=== PATIENT | female | born 1980 | race Caucasian/White ===

== ENCOUNTER 2016-09-07 05:03 | Inpatient (IN) | payer BC ==
[2016-09-02 13:29] VITALS: BMI 32.4
[2016-09-07] MEDS ORDERED: ROPIVACAINE HCL 0.5% 30ML VIAL ONE (07:40)
[2016-09-07] MEDS ORDERED: MIDAZOLAM HCL 2 MG/2 ML SINGLE DOSE VIAL ONE ×2 (07:42)
--- NOTE | 2016-09-07 07:49 | HP ---
Past Medical History - Primary Care Physician PCP:: Preet Ray - Admission Chief Complaint: PELVIC PAIN, ENDOMETRIOSIS, PELVIC ADHESIONS History of Present Illness: 36 YO F GI PI WITH 1 PREVIOUS C/S HX OS SEVER ENDOMETRIOSIS, S/P LAPAROSCOPY AND RT SALPINGECTOMY, C/O OF CHRONIC PELVIC PAIN WORSEN BY HER MENSES , SEVERE DYSMENORRIHIA, UURE INCLUDING BUTCEDNABLE TO GO TO WORK,AND INTERFER WITH HER DAILY WORK REQUESTING TO HAVE HYSTERECTOMY AND LSO,RISK OF PROCEDURE HAS BEEN DISCUSSED WITH PATIENT AND HER , AWARE RISK OF INFECTION, BLEEDING, INJURY TO SURROUNDING TISSUE, BOWEL, BLADDER, VESSELES, URETER ,POST OP COMPLICATIONS , DVT, ANESTHESIA RISK AND RISK OF ETHANOL 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 History Source: Patient - Past Medical History ...: 1 - Past Surgical History Past Surgical History: Yes: (LAPAROSCOPY , LYSIS OF PELVIC ADHESIONS) Hx Myomectomy: No Hx Transabdominal Cerclage: No - Smoking History Smoking history: Never smoked Have you smoked in the past 12 months: No Aproximately how many cigarettes per day: 0 - Alcohol/Substance Use Hx Alcohol Use: No - Social History Usual Living Arrangement: Yes: With Spouse History of Recent Travel: No Home Medications - Allergies Allergies/Adverse Reactions: Allergies Allergy/AdvReac Type Severity Reaction Status Date / Time cephalexin monohydrate Allergy Intermediate "RASH" Verified 09/02/16 13:29 [From Keflex] - Home Medications Home Medications: Ambulatory Orders Omeprazole 20 mg PO DAILY 09/02/16 Review of Systems - Review of Systems Constitutional: reports: No Symptoms Eyes: reports: No Symptoms HENT: reports: No Symptoms Neck: reports: No Symptoms Cardiovascular: reports: No Symptoms Respiratory: reports: No Symptoms Gastrointestinal: reports: Abdominal Pain, Indigestion Genitourinary: reports: Frequency, Vaginal Bleeding Breasts: reports: No Symptoms Reported Musculoskeletal: reports: No Symptoms Neurological: reports: No Symptoms Endocrine: reports: No Symptoms Hematology/Lymphatic: reports: No Symptoms Psychiatric: reports: No Symptoms 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 Vital Signs: Vital Signs Temperature 97.5 F L 09/07/16 07:30 Pulse Rate 88 09/07/16 07:30 Respiratory Rate 18 09/07/16 07:30 Blood Pressure 145/78 09/07/16 07:30 O2 Sat by Pulse Oximetry (%) 100 09/07/16 07:28 Constitutional: Yes: Well Nourished, No Distress, Calm Eyes: Yes: WNL, Conjunctiva Clear, EOM Intact HENT: Yes: WNL, Atraumatic, Normocephalic Neck: Yes: WNL, Supple, Trachea Midline Cardiovascular: Yes: WNL, Regular Rate and Rhythm Respiratory: Yes: WNL, Regular, CTA Bilaterally Gastrointestinal: Yes: WNL ...Rectal Exam: Yes: WNL Renal/: Yes: WNL Pelvis: Yes: WNL External Genitalia: Yes: Normal Internal Exam Deferred: No Vaginal Exam: Yes: Normal Cervix: Yes: Normal Uterus: Yes: Normal, Tender Adnexa: Tender: Left, Right, Not Palpable: Left, Right Breast(s): Yes: WNL Musculoskeletal: Yes: WNL Extremities: Yes: WNL Edema: No Integumentary: Yes: WNL Neurological: Yes: WNL, Alert, Oriented ...Motor Strength: WNL Psychiatric: Yes: WNL, Alert, Oriented Problem List - Problem (1) Pelvic pain Code(s): R10.2 - PELVIC AND PERINEAL PAIN (2) Endometriosis determined by laparoscopy Code(s): N80.9 - ENDOMETRIOSIS, UNSPECIFIED Assessment/Plan ADMIT FOR LAPAROTOMY, SUPRACERVICAL HYSTERECTOMY, RSO, RBA DISCUSSED
[2016-09-07] MEDS ORDERED: DEXAMETHASONE SOD PHOSPHATE 4 MG/1 ML VIAL ONE ×2 (09:12→10:40)
[2016-09-07] MEDS ORDERED: PROPOFOL 20 ML ONE (09:13)
[2016-09-07] MEDS ORDERED: ROCURONIUM BROMIDE 50 MG/5 ML VIAL ONE ×2 (09:14→10:05)
[2016-09-07] MEDS ORDERED: CLINDAMYCIN PHOSPHATE 600 MG/4 ML VIAL ONE (09:24)
[2016-09-07] MEDS ORDERED: LEVOFLOXACIN 500 MG IVPB 100 ML IVPB ONE (09:24)
[2016-09-07] MEDS ORDERED: CLINDAMYCIN PHOSPHATE 300 MG/2 ML VIAL IVPB ONE (09:24)
[2016-09-07] MEDS ORDERED: LEVOFLOXACIN 500 MG PREMIX BAG IVPB ONE (09:27)
[2016-09-07] MEDS ORDERED: ePHEDrine SULFATE 50 MG/1 ML AMPULE ONE (09:59)
[2016-09-07] MEDS ORDERED: GLYCOPYRROLATE 0.2 MG/1 ML VIAL ONE (10:22)
[2016-09-07] MEDS ORDERED: NEOSTIGMINE METHYLSULFATE 0.5 MG/ML - 10 ML MDV ONE (10:22)
[2016-09-07] MEDS ORDERED: oxyCODONE HCL 5 MG TABLET PO PRN (11:33)
[2016-09-07] MEDS ORDERED: IBUPROFEN 800 MG/8 ML IJ IVPB PRN (11:33)
[2016-09-07] MEDS ORDERED: ONDANSETRON 4 MG/2 ML VIAL IVPUSH PRN ×2 (11:39→11:40)
[2016-09-07] MEDS ORDERED: PROMETHAZINE HCL 25 MG/1 ML VIAL IVPUSH PRN (11:39)
[2016-09-07] MEDS ORDERED: DEXAMETHASONE SOD PHOSPHATE 4 MG/1 ML VIAL IVPUSH ONE (11:40)
[2016-09-07] MEDS ORDERED: PROMETHAZINE HCL 25 MG/1 ML VIAL IVPB PRN (11:40)
[2016-09-07] MEDS ORDERED: HYDROmorphone HCL CARPU-JECT 2 MG/1 ML DISP.SYRIN ONE (11:42)
[2016-09-07] MEDS ORDERED: ELECTROLYTE-148 SOLN 1,000 ML IV SCH (11:45)
[2016-09-07] MEDS: ONDANSETRON 4 MG/2 ML VIAL IVPB PRN (11:45)
[2016-09-07] MEDS ORDERED: HYDROmorphone *PCA* 10MG/50ML DISP.SYRIN PCA SCH (11:45)
[2016-09-07] MEDS: HYDROmorphone HCL CARPU-JECT 1 MG/1 ML DISP.SYRIN IVPUSH PRN ×2 (11:50→12:13)
[2016-09-07] MEDS: KETOROLAC TROMETHAMINE 30 MG/1 ML VIAL IVPB PRN (16:43)
[2016-09-07] MEDS: CLINDAMYCIN 600MG PREMIX IVPB 50 ML IVPB SCH ×2 (17:38→21:39)
[2016-09-07] MEDS: PANTOPRAZOLE 20 MG TABLET (FP) PO SCH (20:04)
[2016-09-07] MEDS ORDERED: PANTOPRAZOLE 20 MG TABLET (FP) PO ONE (21:15)
[2016-09-08] MEDS: CLINDAMYCIN 600MG PREMIX IVPB 50 ML IVPB SCH ×2 (02:32→08:44)
--- NOTE | 2016-09-08 06:52 | OP ---
DATE OF OPERATION: 09/07/2016 PREOPERATIVE DIAGNOSIS: Pelvic pain, endometriosis, right ovarian endometrioma, and pelvic adhesion. POSTOPERATIVE DIAGNOSIS: Pelvic pain, endometriosis, right ovarian endometrioma, and pelvic adhesion. Severe endometriosis, dense pelvic adhesion, and unicornuate uterus. PROCEDURE: Exploratory laparotomy, lysis of all pelvic adhesions, abdominal hysterectomy with left salpingo-oophorecetomy. SURGEON: Preet Ray MD COLLISION MECHANIC: Jose Betancur MD ANESTHESIA: General. ANESTHESIOLOGIST: Marin Kilpatrick MD ESTIMATED BLOOD LOSS: Approximately 300 mL. OPERATING NOTE: The patient was taken to the operating room, and under adequate general anesthesia, abdomen and peritoneum were prepped and draped. A Rodarte catheter was inserted, and in the supine position, a Pfannenstiel lower abdominal skin incision was made over the previous incision. Abdominal wall was cut layer by layer until peritoneum was reached. At this time, peritoneum was grasped with 2 Mona clamps. Peritoneum was adherent to the omentum, and then omentum was also adherent to the fundal portion of the uterus. These adhesions were lysed meticulously with Metzenbaum scissors until abdomen was entered. Bowels were packed away. There was endometriosis. Endometriotic lesion, bluish, was seen all over the rectum and the colon. There was also endometriosis at the anterior bladder flap. The colon was adherent to the posterior cul-se-sac and also adherent to the right ovary, and then, also left ovary was adherent to the pelvic side wall. It was very difficult to visualize the anatomy. At this time, the colon was grasped with the Rippey clamp, and adhesions were lysed with Metzenbaum scissors, and colon was dissected from both ovaries. There was some oozing from the surface of the colon secondary to the lysis of adhesions, which was stopped with applying pressure. It took about 45 minutes to lyse these colon adhesions from both ovaries. The right ovary has an endometrioma approximately 4 cm in size, and at this time, uterus was unicornuate and then was grasped with a Honey clamp, and a bladder flap was developed. Bladder also had some adhesion to the anterior uterine wall over the previous scar. These adhesions were lysed and bladder was pushed down, and then the left infundibulopelvic ligament was identified, grasped with a bipolar LigaSure cautery, cauterized and cut, and no bleeding was seen at this site. Then, the round ligament was identified bilaterally, clamped with a LigaSure bipolar cautery, cauterized and cut, and the uterus was freed. Then, on the right side, a clamp was applied at the cornual region of the uterus, and the right ovarian ligament was grasped with a Honey clamp and cut, and the clamp replaced with 0 Vicryl suture. At this time, uterine artery was skeletonized and was identified bilaterally, clamped with Honey clamps, cut, and the clamp replaced with 0 Vicryl suture bilaterally. Paracervical area was clamped with Honey clamps, cut, and the clamp replaced with several sutures of 0 Vicryl until the cervicovaginal junction was reached. At this time, the cervix was cut circumferentially around, and then was entered, and the specimen was removed. Then, the vaginal cuff was sutured with interrupted suture of 0 Vicryl, and hemostasis was established. At this time, both ligaments were checked, normal bowels were checked and reinspected. No signs of injuries. Pelvic cavity was several times irrigated. There were some omental adhesion to the peritoneum and anterior abdominal wall, which was lysed and then cauterized with the bipolar LigaSure cautery, and these adhesions were released. Then, pelvic cavity was several times irrigated. Peritoneum was closed with 0 Vicryl continuous suture. Muscles were brought together with interrupted suture of 0 Vicryl. Fascia was closed with 0 Vicryl continuous suture, subcutaneous fat with interrupted suture of 0 Vicryl, and the skin was closed with 3-0 Vicryl subcuticular continuous suture. Patient tolerated the procedure well, left the OR in good condition. Mike [id number]
[2016-09-08] MEDS: KETOROLAC TROMETHAMINE 30 MG/1 ML VIAL IVPB PRN (09:31)
[2016-09-08] MEDS ORDERED: LEVOFLOXACIN 500 MG IVPB 100 ML IVPB SCH (10:00)
[2016-09-08] MEDS: ENOXAPARIN NA (PORCINE) 40 MG/0.4 ML DISP.SYRIN SQ SCH (10:14)
[2016-09-08] MEDS: PANTOPRAZOLE 20 MG TABLET (FP) PO SCH (10:14)
--- NOTE | 2016-09-08 10:30 | PN ---
Progress Note (short form) - Note Progress Note: pod 1 has low abdominal discomfort abdomen soft, no distension, no cva. BS present incision drry, clean no calf tenderness impression doing well, oob, ambulate, advance diet, pain management
[2016-09-08 11:24] LABS: BASOPHIL 0.6 % (0-2.0); EOSINOPHIL 0.1 % (0-4.5); MCH 26.7 pg (25.7-33.7); MCHC 32.8 g/dl (32.0-36.0); MEAN CELL VOLUME 81.6 fl (80-96); MEAN PLT VOLUME 8.7 fl (7.5-11.1); PLATELET COUNT 167 K/MM3 (134-434); RDW 16.3 % (11.6-15.6)
[2016-09-08 12:01] LABS: CALCIUM 7.5 mg/dL (8.5-10.1); CREATININE 0.6 mg/dL (0.55-1.02)
[2016-09-08] MEDS ORDERED: PCA PUMP KEY 1 EACH EACH ONE (12:48)
--- NOTE | 2016-09-08 13:28 | PATH ---
Surgical Pathology Report Patient Name: JU GANDHI [facility]. Rec. #: [id number] /Age/Gender: 1980 (Age: 36) / F Account: [id number] Location: [facility] OBS/AGILE QA TESTER Taken: 09/07/2016 Received: 09/07/2016 Reported: 09/08/2016 Physicians: Preet Ray M.D. Specimen(s) Received A: UTERUS,CERVIX,LEFT OVARY & FALLOPIAN TUBE B: OMENTUM Clinical History Pelvic pain, endometriosis Final Diagnosis A. UTERUS, CERVIX, LEFT OVARY AND TUBE, TOTAL ABDOMINAL HYSTERECTOMY, LEFT SALPINGO-OOPHORECTOMY: CERVIX: CHRONIC CERVICITIS. ENDOMETRIUM: PREDOMINANTLY SECRETORY. MYOMETRIUM: EXTENSIVE ADENOMYOSIS. UTERINE SEROSA: WITHOUT SIGNIFICANT PATHOLOGIC CHANGES. LEFT FALLOPIAN TUBE: PARATUBAL CYST, EXTENSIVE TUBO-OVARIAN ADHESIONS. LEFT OVARY: BENIGN HEMORRHAGIC CYST, MOST CONSISTENT WITH ENDOMETRIOTIC CYST/ENDOMETRIOMA. EXTENSIVE TUBO-OVARIAN ADHESIONS. B. OMENTUM, EXCISION: BENIGN FATTY TISSUE WITH MARKED VASCULAR CONGESTION. Electronically Signed Meliton Leone M.D. Gross Description A. Received in formalin, labeled "uterus, cervix, left ovary and tube" is a 101 g uterus with an attached cervix and an attached left fallopian tube and left ovary. The specimen measures 10 cm from superior to inferior, 5.3 cm from left to right and 5.0 cm from anterior to posterior. The serosa is garcia-pink with focal adhesions. The attached cervix measures 4 cm in length and averages 2.2 cm in diameter. There is no definite ectocervix identified. The endocervix is unremarkable. The endometrial cavity measures 4 cm in length and averages 1.5 cm from cornu to cornu. The endometrium is garcia-red and measures up to 0.3 cm in thickness. The myometrium is garcia-pink with focal hemorrhagic cysts containing brown blood. The myometrium measures up to 2.4 cm in thickness. The left fimbriated fallopian tube measures 2.4 cm in length. The outer surface is mora purple with tubal ovarian adhesions. Sectioning reveals an unremarkable lumen. The left ovary measures 3.5 x 2.5 x 2.0 cm. The outer surface is garcia-brown with focal adhesions. Sectioning reveals a cystic lumen containing brown blood. No definite normal ovarian parenchyma is identified. Engagement Director sections are submitted in 13 cassettes as follows: 1-anterior cervix; 2-posterior cervix; 0-3-pimlalzx endomyometrium; 0-3-klisqwmbz endomyometrium; 2-1-bhbgcyxyhg myometrium with hemorrhagic cysts; 9-left fallopian tube fimbria; 10-cross sections of left fallopian tube; 11-13-left ovary. B. Received in formalin, labeled "omentum" is an 8.5 x 4.3 x 0.6 cm yellow, irregular portion of lobulated adipose tissue, consistent with omentum. No lesions are identified. Engagement Director sections are submitted in 3 cassettes. 09/07/2016 [facility]09/07/2016
[2016-09-08] MEDS: ONDANSETRON 4 MG/2 ML VIAL IVPB PRN (13:54)
[2016-09-08] MEDS ORDERED: ACETAMINOPHEN 1000 MG/100 ML VIAL (NON FORMULARY) IVPB ONE (14:32)
--- NOTE | 2016-09-08 14:32 | PN ---
Progress Note (short form) - Note Progress Note: Anesthesia POD#1 S/P DARSHANA left salpingo-oophrectomy under GA, TAP block and Dilaudid PLATER BARREL Patient is doing well.Stable vitals. Temporary nausea while getting out of bed,getting better, A/p PLATER BARREL is discontinued this morning. writing one dose of Ofirmev one gram for now. Radha Chahal.
[2016-09-08] MEDS ORDERED: BISACODYL 10 MG SUPP.RECT RC PRN (16:44)
[2016-09-08] MEDS: IBUPROFEN 600 MG TABLET (FP) PO PRN (21:10)
[2016-09-08 22:38] VITALS: TEMP 98.3
[2016-09-08] MEDS ORDERED: DEXTROSE 5%-LACTATED RINGERS 1,000 ML IV SCH (23:45)
[2016-09-08] MEDS ORDERED: ACETAMINOPHEN 1000 MG/100 ML VIAL (NON FORMULARY) IVPB PRN (23:47)
[2016-09-09] MEDS: ONDANSETRON 4 MG/2 ML VIAL IVPB PRN (00:14)
[2016-09-09] MEDS: ENOXAPARIN NA (PORCINE) 40 MG/0.4 ML DISP.SYRIN SQ SCH (09:45)
[2016-09-09] MEDS: IBUPROFEN 600 MG TABLET (FP) PO PRN ×2 (09:52→16:57)
[2016-09-09] MEDS: PANTOPRAZOLE 20 MG TABLET (FP) PO SCH (10:34)
[2016-09-09 12:52] VITALS: BP 123/67; PULSE 96
--- NOTE | 2016-09-09 18:26 | DS ---
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: Vital Signs Temperature 98.3 F 09/09/16 10:00 Pulse Rate 96 H 09/09/16 10:00 Respiratory Rate 20 09/09/16 10:00 Blood Pressure 123/67 09/09/16 10:00 O2 Sat by Pulse Oximetry (%) 100 09/07/16 15:45 Constitutional: Yes: Well Nourished, No Distress, Calm Eyes: Yes: WNL, Conjunctiva Clear, EOM Intact HENT: Yes: WNL, Atraumatic, Normocephalic Neck: Yes: WNL, Supple, Trachea Midline Cardiovascular: Yes: WNL, Regular Rate and Rhythm Respiratory: Yes: WNL, Regular, CTA Bilaterally Gastrointestinal: Yes: WNL ...Rectal Exam: Yes: WNL Renal/: Yes: WNL Pelvis: Yes: WNL External Genitalia: Yes: Normal Vaginal Exam: Yes: Normal Breast(s): Yes: WNL Musculoskeletal: Yes: WNL Extremities: Yes: WNL Edema: No Integumentary: Yes: WNL Wound/Incision: Yes: Clean/Dry, Well Approximated, Sutures Intact Neurological: Yes: WNL, Alert, Oriented ...Motor Strength: WNL Psychiatric: Yes: WNL, Alert, Oriented Labs: CBC, BMP 09/08/16 11:10 09/08/16 11:10 Discharge Summary Reason For Visit: ENDOMETRIOSIS OF PELVIC PERITONEUM/UNICORNATE UTER Current Active Problems Endometriosis determined by laparoscopy (Acute) Pelvic pain (Acute) Procedures: Principal: expl lap. abdominal hysterectomy, LSO, lysis of pelvic adhesions Hospital Course: uneventful Condition: Good - Instructions Diet, Activity, Other Instructions: regular diet, if pain, fever, bleeding call , follow up office 2 weeks Referrals: Preet Ray MD [Staff Physician] - Disposition: HOME - Home Medications Comprehensive Discharge Medication List: Ambulatory Orders Omeprazole 20 mg PO DAILY 09/02/16 Ibuprofen [Motrin -] 600 mg PO QID #28 tablet 09/09/16
== END 2016-09-09 19:14 | disposition home or self-care (01) | DRG 743 ==
LOC: JSAMEDAYSX 05:03 → J3W 15:06
PROVIDERS: ADMIT Obstetrics & Gynecology; ATTEND Obstetrics & Gynecology
PROC: 0UTC0ZZ Resection of Cervix, Open Approach (ICD-10-PCS; 2016-09-07)
PROC: 0UT60ZZ Resection of Left Fallopian Tube, Open Approach (ICD-10-PCS; 2016-09-07)
PROC: 0UT10ZZ Resection of Left Ovary, Open Approach (ICD-10-PCS; 2016-09-07)
PROC: 0JNC0ZZ Release Pelvic Region Subcutaneous Tissue and Fascia, Open Approach (ICD-10-PCS; 2016-09-07)
PROC: 0UT90ZZ Resection of Uterus, Open Approach (ICD-10-PCS; principal; 2016-09-07 09:00)
DX: N80.1 Endometriosis of ovary (principal); N73.6 Female pelvic peritoneal adhesions (postinfective); R10.2 Pelvic and perineal pain
CPT/HCPCS: 36415; 80048; 84703; 85025; 88305-TC; 88307-TC; 94760

== ENCOUNTER 2018-03-08 05:02 | Day surgery (SDC) | payer BC ==
[2018-03-07 08:59] VITALS: BMI 37.5
--- NOTE | 2018-03-08 08:56 | HP ---
Satellite PMH - Chief Complaint Chief Complaint: right knee pain - Past Medical History Allergies/Adverse Reactions: Allergies Allergy/AdvReac Type Severity Reaction Status Date / Time cephalexin monohydrate Allergy Intermediate "RASH" Verified 03/07/18 08:59 [From Keflex] ...LMP: 04/03/13 ...LMP Comment: hysterectomy - Current Medications Current Medications: Home Medications Medication Instructions Recorded Omeprazole 20 mg PO DAILY 09/02/16 Escitalopram Oxalate [Lexapro -] 5 mg PO DAILY 03/07/18 Oxycodone HCl/Acetaminophen 1 tab PO Q6H #20 tablet MDD 4 03/08/18 [Percocet 5-325 mg Tablet] Satellite Physical Exam - Physical Examination Vital Signs: Vital Signs Period Temp Pulse Resp BP Sys/Nazario Pulse Ox Last 24 Hr 98.2 F-98.2 F 69-69 20-20 133-133/68-68 99 General Appearance: Well Nourished, Well Developed, Alert & Oriented x3 ENT: Clear Lung: Normal air movement Heart: Regular rate & rhythm Extremities: Other (right knee- + swelling, + ttp, decrr rom, + mcmurrays, nvi) Neurological: Intact, Alert, Oriented Satellite Impression/Plan - Impression/Plan Impression: right knee internal derangement Operative Procedure: right knee arthroscopy Date to be Performed: 03/08/18
[2018-03-08] MEDS ORDERED: MIDAZOLAM HCL 2 MG/2 ML SINGLE DOSE VIAL ONE (09:35)
[2018-03-08] MEDS ORDERED: DEXAMETHASONE SOD PHOSPHATE 4 MG/1 ML VIAL ONE (09:35)
[2018-03-08] MEDS ORDERED: PROPOFOL 20 ML ONE (09:35)
[2018-03-08] MEDS ORDERED: BUPIVACAINE HCL/PF 0.5% (5MG/ML) 10 ML VIAL ONE (09:43)
[2018-03-08] MEDS ORDERED: ONDANSETRON 4 MG/2 ML VIAL IVPUSH PRN (09:53)
[2018-03-08] MEDS ORDERED: LACTATED RINGERS SOLUTION 1,000 ML IV SCH (10:00)
[2018-03-08] MEDS ORDERED: LIDOCAINE 1%/EPI 1:100000 (20 ML MULTI DOSE VIAL) IJ ONE (10:20)
[2018-03-08] MEDS ORDERED: BUPIVACAINE HCL/PF 0.5% (5MG/ML) 10 ML VIAL IJ ONE (10:20)
--- NOTE | 2018-03-08 11:09 | OP ---
Operative Note - Note: Operative Date: 03/08/18 ([facility]) Pre-Operative Diagnosis: right knee internal derangement Operation: right knee arthroscopy with PMM, PLM Post-Operative Diagnosis: Same as Pre-op Surgeon: Guzman Ayers Scientific Process Operator: Luis Nunes Anesthesiologist/ROLL MILL OPERATOR: Kajal John Anesthesia: General, Local Specimens Removed: shavings Estimated Blood Loss (mls): 5 Operative Report Dictated: Yes
[2018-03-08] MEDS ORDERED: ACETAMINOPHEN INJECTION 100 ML IVPB ONE (12:17)
[2018-03-08] MEDS ORDERED: ACETAMINOPHEN 1000 MG/100 ML VIAL (NON FORMULARY) IVPB ONE (12:22)
[2018-03-08 12:55] VITALS: TEMP 98
--- NOTE | 2018-03-08 12:56 | OP ---
DATE OF OPERATION: 03/08/2018 PREOPERATIVE DIAGNOSIS: Internal derangement, right knee. POSTOPERATIVE DIAGNOSIS: Internal derangement, right knee. PROCEDURE: Arthroscopy, right knee, with partial medial and lateral meniscectomies. SURGICAL ATTENDING: Guzman Ayers MD ASSOCIATE DIRECTOR REGULATORY AFFAIRS: Luis Nunes MD ANESTHESIA: General LMA. CLOSURE: 4-0 nylon. COMPLICATIONS: None. CONDITION: To recovery room in stable condition. DESCRIPTION OF OPERATIVE PROCEDURE: Patient was taken to the operating room on March 08, 2018. General anesthesia with LMA was administered by the anesthesiologist. Right lower extremity was prepped and draped in the usual sterile fashion. The medial and lateral infrapatellar portal sites were infiltrated with 1% Xylocaine with epinephrine. Both portals were then made with a 15-blade followed by blunt trocar. The scope was placed in the lateral infrapatellar portal and up into the suprapatellar pouch. The knee was inflated with cocktail of 10 mL of 1% Xylocaine, 10 mL of 0.5% Marcaine, 20 mL of arthroscopic saline. After allowing the medicine to anesthetize the inside part of the knee, the procedure was performed. The undersurface of the patella and trochlea were visualized to be intact. The medial and lateral gutters were visualized to be intact. With valgus stress on the knee, the medial compartment was entered. The medial meniscus was found to have a flap tear of its posterior horn. This was debrided back to smooth, stable meniscal tissue with meniscal biter and arthroscopic shaver. The medial femoral condyle was run and found to be intact, as was the medial tibial plateau. At 90 degrees, the ACL was visualized, probed, found to be intact. In the figure-four position the lateral compartment was entered. The lateral meniscus was visualized and probed, and found to have a flap tear of its mid portion. This was debrided back to smooth, stable meniscal tissue with meniscal biter and arthroscopic shaver. The lateral femoral condyle was run and found to be intact, as was the lateral tibial plateau. The knee was irrigated with copious amounts of irrigation. The portals were closed using 4-0 nylon. Prior to closure, 20 mL of 0.5% Marcaine was infused with a trocar for postoperative analgesia. Sterile pressure dressing was placed over the knee. Patient awakened from anesthesia and transferred to recovery in stable condition. No complications. Estimated blood loss negligible. LUIS NUNES M.D. MIKE/[id number]
[2018-03-08 13:47] VITALS: BP 133/80; PULSE 69
--- NOTE | 2018-03-09 14:59 | PATH ---
Surgical Pathology Report Patient Name: JU GANDHI [facility]. Rec. #: [id number] /Age/Gender: 1980 (Age: 37) / F Account: [id number] Location: [facility] SURGICAL Taken: 03/08/2018 Received: 03/08/2018 Reported: 03/09/2018 Physicians: Mike Fonseca M.D. Specimen(s) Received RIGHT KNEE SHAVINGS Clinical History Right knee tear Final Diagnosis KNEE SHAVINGS, RIGHT, ARTHROSCOPY, PARTIAL MEDIAL LATERAL MENISCUS REPAIR: FRAGMENTS OF CARTILAGE, DENSE FIBROCONNECTIVE TISSUE, ADIPOSE TISSUE, AND SYNOVIUM. Electronically Signed Courtney Guardado M.D. Gross Description Received in formalin, labeled "right knee shavings," is a 4.0 x 3.2 x 0.3 cm. aggregate of garcia-yellow soft tissue fragments. A marketing development representative portion is submitted in one cassette. /03/08/2018 [place]/03/08/2018
== END 2018-03-08 14:00 | disposition home or self-care (01) ==
LOC: JASU-SURG 05:02
PROVIDERS: ATTEND Orthopaedic Surgery
PROC: 0SBC4ZZ Excision of Right Knee Joint, Percutaneous Endoscopic Approach (ICD-10-PCS; 2018-03-08)
PROC: 0SBC4ZZ Excision of Right Knee Joint, Percutaneous Endoscopic Approach (ICD-10-PCS; principal; 2018-03-08 09:45)
DX: S83.241A Other tear of medial meniscus, current injury, right knee, initial encounter (principal); S83.281A Other tear of lateral meniscus, current injury, right knee, initial encounter; X58.XXXA Exposure to other specified factors, initial encounter; Y93.9 Activity, unspecified; Y92.9 Unspecified place or not applicable; Y99.9 Unspecified external cause status
CPT/HCPCS: 88304-TC; 94760; J0131

== ENCOUNTER 2024-06-12 04:09 | Day surgery (SDC) | payer BC, OTHER ==
[2024-06-04 15:30] VITALS: BMI 45.9
[2024-06-12] MEDS ORDERED: LIDOCAINE VISCOUS 2% ORAL/TOP 15 ML UNIT-DOSE CUP ONE (10:12)
[2024-06-12 10:54] VITALS: TEMP 97.8
[2024-06-12 13:19] VITALS: BP 128/80; PULSE 69; RESP 20
== END 2024-06-12 11:45 | disposition home or self-care (01) ==
LOC: JASU-ENDO 04:09
PROVIDERS: ATTEND Internal Medicine Gastroenterology
PROC: 0DB98ZX Excision of Duodenum, Via Natural or Artificial Opening Endoscopic, Diagnostic (ICD-10-PCS; 2024-06-12)
PROC: 0DB78ZX Excision of Stomach, Pylorus, Via Natural or Artificial Opening Endoscopic, Diagnostic (ICD-10-PCS; 2024-06-12)
PROC: 0DB68ZX Excision of Stomach, Via Natural or Artificial Opening Endoscopic, Diagnostic (ICD-10-PCS; 2024-06-12)
PROC: 0DJD8ZZ Inspection of Lower Intestinal Tract, Via Natural or Artificial Opening Endoscopic (ICD-10-PCS; principal; 2024-06-12 10:00)
DX: Z12.11 Encounter for screening for malignant neoplasm of colon (principal); K21.00 Gastro-esophageal reflux disease with esophagitis, without bleeding; K44.9 Diaphragmatic hernia without obstruction or gangrene; Z83.719 Family history of colon polyps, unspecified
CPT/HCPCS: 88305-TC; 88342-TC